=== PATIENT | male | born 1945 | race Hispanic/Latino ===

== ENCOUNTER → 2021-01-12 | Outpatient (CLI) | payer MEDICARE ==
[~2021-01-12] MED LIST: IOHEXOL-350 75 ML VIAL IV ONE
== END | disposition home or self-care (01) ==
LOC: RAH 07:48
PROVIDERS: ATTEND Internal Medicine Gastroenterology
DX: R22.0 Localized swelling, mass and lump, head (principal); Z90.49 Acquired absence of other specified parts of digestive tract
CPT/HCPCS: 74170; Q9967

== ENCOUNTER 2021-02-01 09:38 | Day surgery (SDC) | payer MEDICARE ==
[2021-02-01] VITALS (9 sets, daily range): BP systolic 89–118; BP diastolic 54–68
[~2021-02-01] VITALS: Ht 160 cm; Wt 64.1 kg
[2021-02-01] MEDS ORDERED: NAPR500T6 PO (10:44)
[2021-02-01] MEDS ORDERED: AMLO-258 PO (10:44)
[2021-02-01] MEDS ORDERED: LISI40TA9 PO (10:44)
[2021-02-01] MEDS ORDERED: VENL-191 PO (10:44)
[2021-02-01] MEDS ORDERED: LORA10TA7 PO (10:44)
[2021-02-01] MEDS ORDERED: PANT40TA54 PO (10:44)
[2021-02-01] MEDS ORDERED: METF-446 PO (10:44)
[2021-02-01] MEDS ORDERED: MIRT45TA83 PO (10:44)
[2021-02-01] MEDS ORDERED: BENZ200C53 PO (10:44)
[2021-02-01] MEDS ORDERED: 0.9%NACL 1000ML 1,000 ML IV ONE (11:12)
[2021-02-01] MEDS ORDERED: FENTANYL CITRATE PF 50 MCG/1 ML 2ML VIAL ONE (12:09)
[2021-02-01] MEDS ORDERED: PROPOFOL 10 MG/ML 20ML VIAL IV ONE ×2 (12:09→12:11)
[2021-02-01] MEDS ORDERED: IPRATROPIUM/ALBUTEROL SULFATE 3 ML SOLUTION IH ONE ×2 (12:53→14:00)
[2021-02-01] MEDS ORDERED: LACTATED RINGERS 1000ML 1,000 ML IV ONE (13:18)
[2021-02-15] MEDS ORDERED: NAPR-1196 PO (11:33)
[2021-02-15] MEDS ORDERED: DULA1.5P SQ (11:33)
[2021-02-15] MEDS ORDERED: LISI20TA24 PO (11:33)
[2021-02-15] MEDS ORDERED: METF-446 PO (11:33)
[2021-02-15] MEDS ORDERED: VENL100T4 PO (11:33)
[2021-02-15] MEDS ORDERED: PANT40TA54 PO (11:33)
[2021-02-15] MEDS ORDERED: MIRT-93 PO (11:33)
[2021-02-17] MEDS ORDERED: AMOX-426 PO (12:47)
== END 2021-02-01 14:30 | disposition home or self-care (01) ==
LOC: DAH 09:38 → ENDO 09:38
PROVIDERS: ATTEND Internal Medicine Gastroenterology
DX: R93.3 Abnormal findings on diagnostic imaging of other parts of digestive tract (principal); Z20.822 Contact with and (suspected) exposure to COVID-19; K86.89 Other specified diseases of pancreas; I10 Essential (primary) hypertension; K21.9 Gastro-esophageal reflux disease without esophagitis; E11.9 Type 2 diabetes mellitus without complications; F32.9 Major depressive disorder, single episode, unspecified; Z79.899 Other long term (current) drug therapy
CPT/HCPCS: 43242; 82948 ×2; 88173; 88305; 93005; 94640; A4215 ×3; A4221; A4222; A4223; A4606; A4620; A4663; J2704 ×2; J3010; J7030; J7120

== ENCOUNTER 2021-02-14 06:35 | Day surgery (SDC) | payer MEDICARE ==
[2021-02-14] VITALS (16 sets, daily range): BP systolic 88–120; BP diastolic 49–77
[~2021-02-14 06:35] MED LIST changes: +AMLO-258 PO; +BENZ200C53 PO; -IOHEXOL-350 75 ML VIAL IV ONE; +LISI40TA9 PO; +LORA10TA7 PO; +METF-446 PO; +MIRT45TA83 PO; +NAPR500T6 PO; +PANT40TA54 PO; +VENL-191 PO
[2021-02-14] MEDS ORDERED: IPRATROPIUM/ALBUTEROL SULFATE 3 ML SOLUTION IH ONE (07:51)
[2021-02-14] MEDS ORDERED: IPRATROPIUM/ALBUTEROL SULFATE 3 ML SOLUTION IH SCH (08:00)
[2021-02-15] MEDS ORDERED: MIRT-93 PO (11:33)
[2021-02-15] MEDS ORDERED: LISI20TA24 PO (11:33)
[2021-02-15] MEDS ORDERED: METF-446 PO (11:33)
[2021-02-15] MEDS ORDERED: VENL100T4 PO (11:33)
[2021-02-15] MEDS ORDERED: DULA1.5P SQ (11:33)
[2021-02-15] MEDS ORDERED: NAPR-1196 PO (11:33)
[2021-02-15] MEDS ORDERED: PANT40TA54 PO (11:33)
[2021-02-17] MEDS ORDERED: AMOX-426 PO (12:47)
== END 2021-02-14 09:35 | disposition home or self-care (01) ==
LOC: DAH 06:35 → ENDO 06:35
PROVIDERS: ATTEND Internal Medicine
DX: R93.3 Abnormal findings on diagnostic imaging of other parts of digestive tract (principal); Z20.822 Contact with and (suspected) exposure to COVID-19; K86.89 Other specified diseases of pancreas; K80.50 Calculus of bile duct without cholangitis or cholecystitis without obstruction; I10 Essential (primary) hypertension; E11.9 Type 2 diabetes mellitus without complications; F32.9 Major depressive disorder, single episode, unspecified; Z79.899 Other long term (current) drug therapy; Z98.890 Other specified postprocedural states
CPT/HCPCS: 43242; 82948; 94640; A4215; A4222; A4223; A4606; A4620; 43200

== ENCOUNTER 2021-08-04 16:37 | Emergency (ER) | payer OTHER, MEDICARE ==
[~2021-08-04] VITALS: Ht 167.6 cm; Wt 68.0 kg
[~2021-08-04 16:37] MED LIST changes: -AMLO-258 PO; +AMOX-426 PO; -BENZ200C53 PO; +DULA1.5P SQ; +LISI20TA24 PO; -LISI40TA9 PO; -LORA10TA7 PO; +MIRT-93 PO; -MIRT45TA83 PO; +NAPR-1196 PO; -NAPR500T6 PO; -VENL-191 PO; +VENL100T4 PO
[2021-08-04] MEDS ORDERED: CHLO10 PO (17:14)
[2021-08-04 17:31] VITALS: BP 102/76
== END 2021-08-04 17:33 | disposition home or self-care (01) ==
LOC: EDH 16:37
DX: R06.6 Hiccough (principal); I10 Essential (primary) hypertension; Z79.899 Other long term (current) drug therapy
CPT/HCPCS: 99283; Q0161

== ENCOUNTER 2021-11-02 11:21 | Emergency (ER) | payer MEDICARE ==
[~2021-11-02] VITALS: Ht 162.6 cm; Wt 59.0 kg
[~2021-11-02 11:21] MED LIST changes: +CHLO10 PO
[2021-11-02 11:42] LABS: BASOPHILS % (AUTO) 0.5 % (0.0-5.0); EOSINOPHILS % (AUTO) 0.5 % (0.0-8.0); HEMATOCRIT 30.6 % (42-54); LYMPHOCYTES % (AUTO) 19.4 % (21.0-51.0); MEAN CORPUSCULAR HEMOGLOBIN 27.2 pg (27.0-33.0); MEAN CORPUSCULAR HGB CONC 31.7 g/dL (32.0-36.0); MEAN CORPUSCULAR VOLUME 85.7 fL (79-99); MONOCYTES % (AUTO) 8.2 % (3.0-13.0); NEUTROPHILS % (AUTO) 70.9 % (40.0-77.0); PLATELET COUNT (AUTO) 196 K/uL (130-400); RED BLOOD CELL COUNT(AUTO) 3.57 MIL/uL (4.50-6.20); RED CELL DISTRIBUTION WIDTH 19.2 % (11.0-15.5); WHITE BLOOD COUNT (AUTO) 4.4 K/uL (4.8-10.8)
[2021-11-02] MEDS ORDERED: PANTOPRAZOLE 40 MG/VIAL IVP SCH (11:45)
[2021-11-02 11:51] LABS: APPEARANCE,URINE CLEAR (CLEAR); BILIRUBIN,URINE NEGATIVE (NEGATIVE); COLOR,URINE LIGHT-YELLOW (YELLOW); GLUCOSE, URINE (UA) >=1000 mg/dL (NEGATIVE); KETONES,URINE NEGATIVE (NEGATIVE); LEUKOCYTE ESTERASE ,URINE NEGATIVE Leu/uL (NEGATIVE); NITRATE,URINE NEGATIVE (NEGATIVE); OCCULT BLOOD,URINE NEGATIVE (NEGATIVE); PROTEIN,URINE NEGATIVE (NEGATIVE); UROBILINOGEN,URINE 0.2 mg/dL (0.2-1.0)
[2021-11-02 11:53] LABS: CARBON DIOXIDE 29 mmol/L (21-32); CHLORIDE 97 mmol/L (101-111); CREATININE 0.8 mg/dL (0.5-1.5); GLOMERULAR FILTR. RATE CALC 100 mL/min (>60); GLUCOSE,RANDOM 365 mg/dL (70-105); SODIUM SERUM 133 mmol/L (136-145); UREA NITROGEN, BLOOD 20 mg/dL (7-18)
[2021-11-02 11:55] LABS: RBC,URINE 0-1 /HPF (0-1); SQUAMOUS EPITHELIAL CELL,UR RARE /HPF (0-2); WBC,URINE 0-1 /HPF (0-1)
[2021-11-02] MEDS ORDERED: KETOROLAC 30MG VIAL (30MG/ML) IVP ONE (12:00)
[2021-11-02] MEDS ORDERED: DICYCLOMINE HCL 10 MG/5 ML ML PO ONE (12:00)
[2021-11-02] MEDS ORDERED: MAG/ALUM/SIMETH 30 ML UDCUP PO ONE (12:00)
[2021-11-02] MEDS ORDERED: LIDOCAINE HCL 2% VISCOUS 15 ML UDCUP PO ONE (12:00)
[2021-11-02 12:18] LABS: ALANINE AMINOTRANSFERASE 15 U/L (12-78); ASPARTATE AMINOTRANSFERASE 10 U/L (10-37); LIPASE < 50 U/L (114-286); TOTAL PROTEIN, SERUM 6.4 g/dL (6.0-8.3)
[2021-11-02] MEDS ORDERED: PANT40TA55 PO (13:22)
[2021-11-02 13:25] VITALS: BP 100/61
== END 2021-11-02 13:36 | disposition home or self-care (01) ==
LOC: EDH 11:21
DX: R06.6 Hiccough (principal); K21.9 Gastro-esophageal reflux disease without esophagitis; E11.9 Type 2 diabetes mellitus without complications; I10 Essential (primary) hypertension; Z79.899 Other long term (current) drug therapy; Z79.84 Long term (current) use of oral hypoglycemic drugs
CPT/HCPCS: 99285; 96374; 71045; 96375; 84484; 80053; 83690; 85025; 81001; 36415; 93005; J1885; C9113